=== PATIENT | female | born 1965 | race Caucasian/White ===

== ENCOUNTER 2020-07-04 11:47 | Outpatient (CLI) | payer BC, SELFPAY ==
--- NOTE | ~2020-07-04 | XR_ITS ---
EXAMINATION: XR ribs RT 2V w CXR 2V DATE: 07/04/2020 12:14 INDICATION: Right rib pain. TECHNIQUE: Frontal and lateral views of the chest and 3 views of the right ribs were obtained. COMPARISON: None. FINDINGS: CHEST TWO VIEWS: The chest demonstrates clear lungs without pneumonia, pleural effusion, or pneumotho rax. The heart size is normal. RIGHT RIBS: There is no rib fracture. IMPRESSION: 1. No rib fracture. Reviewed, dictated and finalized at location A. IMPRESSION: 1. No rib fracture.
== END 2020-07-04 11:48 | disposition home or self-care (01) ==
PROVIDERS: PCP Internal Medicine; Visit Provider Internal Medicine
DX: R07.81 Pleurodynia (principal)
CPT/HCPCS: 71046; 71100

== ENCOUNTER 2023-01-31 15:30 | Outpatient (RCR) | payer BC, SELFPAY | END 2023-03-14 08:55 | disposition home or self-care (01) | LOC: ANHDMC 15:30 | PROVIDERS: PCP Internal Medicine; Visit Provider Internal Medicine | DX: E11.9 Type 2 diabetes mellitus without complications (principal); Z71.89 Other specified counseling | CPT/HCPCS: G0108 ==

== ENCOUNTER 2023-06-07 15:25 | Outpatient (RCR) | payer BC, SELFPAY | END 2023-06-10 12:38 | disposition home or self-care (01) | LOC: ANHDMC 15:25 | PROVIDERS: PCP Internal Medicine; Visit Provider Internal Medicine | DX: E11.9 Type 2 diabetes mellitus without complications (principal); Z71.89 Other specified counseling | CPT/HCPCS: G0108 ==

== ENCOUNTER 2025-05-19 12:00 | Emergency (ER) | payer BC, SELFPAY ==
--- NOTE | ~2025-05-19 | XR_ITS ---
EXAMINATION: XR hand RT min 3V, 05/19/2025 12:11 CDT HISTORY: right hand pain COMPARISON: No comparisons available. Findings: No acute fracture or malalignment. No significant degenerative changes. Soft tissues unremarkable. Impression: No acute fracture or malalignment. Reviewed, dictated and finalized at location A. Impression: No acute fracture or malalignment.
--- NOTE | ~2025-05-19 | XR_ITS ---
EXAMINATION: XR forearm RT 2V, 05/19/2025 12:11 CDT HISTORY: swelling and pain. fall COMPARISON: No comparisons available. Findings: No acute fracture or malalignment. No significant degenerative changes. Soft tissues unremarkable. Impression: No acute fracture or malalignment. Reviewed, dictated and finalized at location A. Impression: No acute fracture or malalignment.
[2025-05-19 12:10] VITALS: BP 128/67; PULSE 73; RESP 16; TEMP 35.8; O2SAT 100
--- NOTE | 2025-05-19 12:33 | ED_ITS ---
HPI - General Adult General Chief complaint: Extremity Injury, Upper Stated complaint: FALL/R HAND/ARM/SHOULDER INJURY Source: patient Mode of arrival: ambulatory Limitations: no limitations History of Present Illness HPI narrative: Patient presents for evaluation after experiencing a fall just prior to arrival. She was hiking and tripped, landing with her arms outstretched. She did not hit her head. No loss of consciousness. She is not on blood thinners. She states that she has pain all over. The majority of her pain is located in her right hand, wrist and forearm. She rates her pain 5/10 severity. She has bruising to the dorsal aspect of the right hand. No loss of range of motion but movement makes her symptoms worse. She is right-hand dominant. She has not taken any medication to assist with her symptoms. Related Data Home Medications ?Medication ?Instructions ?Recorded ?Confirmed ?Last Taken ?Type cholecalciferol (vitamin D3) 25 25 mcg PO DAILY Unknown History mcg (1,000 unit) capsule hydrochlorothiazide 25 mg tablet 25 mg PO DAILY Unknown History loratadine 10 mg tablet (Claritin) 10 mg PO DAILY 11/10 11/29 Unknown History losartan 25 mg tablet 25 mg PO 11/23/19 Unknown H istory multivitamin 1 tablet PO DAILY 11/23/19 Unknown History omeprazole magnesium 20 mg 20 mg PO DAILY 11/23/19 Un known History tablet,delayed release tirzepatide 2.5 mg/0.5 mL mg subcut 05/19/25 Unknown History subcutaneous pen injector (Mounjaro) tirzepatide 5 mg/0.5 mL mg subcut 05/19/25 Unknown History subcutaneous pen injector (Mounjaro) Allergies Allergy/AdvReac Type Severity Reaction Status Date / Time latex Allergy Mild Rash Verified 11/23/19 13:07 Review of Systems Review of Systems: CONSTITUTIONAL: Denies fever, chills, or sweats. EYES: Denies visual changes, redness, or discharge. ENT: Denies rhinorrhea, congestion, sore throat, or otalgia. CARDIOVASCULAR: Denies chest pain, palpitations, or edema. RESPIRATORY: Denies cough or dyspnea. GASTROINTESTINAL: Denies abdominal pain, nausea, vomiting, or diarrhea. GENITOURINARY: Denies dysuria or hematuria. SKIN: reports bruising to the right hand. Denies rash or itching. MUSCULOSKELETAL: Reports feeling pain all over with majority of pain in her right hand, wrist, and forearm NEUROLOGIC: Denies headache, numbness, dizziness, or weakness. PSYCHIATRIC: Denies anxiety or depression. [facility] Past Medical History Medical History (Updated 05/19/25 @ 12:47 by Floyd Flores, [employer]PORATE STRATEGY [employer]NALYST, ) delivery delivered Tonsillectomy planned Disease of tonsils and adenoids Allergies Sleep apnea GERD (gastroesophageal reflux disease) Arthritis Asthma Surgical History Surgical History H/O: hysterectomy Family History Family History Mother Family history non-contributory Social History Social History Social History: drinks 3 cups of coffee daily Smoking status: Never smoker Alcohol intake: current Alcohol use details: drinks 2 glasses per month. Substance use: never Living arrangements: with family Gender identity (if verbalized by the patient): Female Spiritual care concerns: No Exam Narrative: GENERAL: Well-appearing, well-nourished, and in no acute distress. HEAD: Normocephalic, atraumatic. EYES: PERRLA and EOMI. ENT: Nares clear, no rhinorrhea or epistaxis. Mucous membranes moist. Oropharynx without tonsillar hypertrophy exudate or other lesions. Bilateral TMs pearly may nonbulging NECK: Supple. No adenopathy or masses. No carotid bruits or JVD CHEST: Clear to auscultation. No respiratory distress. No wheezes rales or rhonchi HEART: Regular rate and rhythm. No murmur heard. Normal peripheral pulses. ABDOMEN: Soft, nontender, nondistended, normal active bowel sounds. EXTREMITIES: there is tenderness over the 4th and 5th metacarpals of the right hand. There is swelling noted to the dorsal aspect of the right hand and the right forearm. Full range of motion of the right wrist but exhibits hesitancy secondary to pain. 4/5 hand coater brake linings strength on the right. 5/5 hand coater brake linings strength on the left SKIN: ecchymosis noted to the dorsal aspect of the right hand NEURO: No focal deficits. Alert and oriented x3. PSYCH: Normal mood and affect. Course Course Emergency Course: This is a 59-year-old female who presented for evaluation an injury to the right upper extremity following a fall. X-rays were negative for fracture. Provided with Peng wrap and sling. Recommend she purchase an [id number] Velcro wrist splint. NSAIDs for pain. She declined analgesics at the time of discharge. She was given Toradol injection while here. She should follow up with primary care go to the ER for worsening symptoms. Patient in agreement with plan of care Level of Care: Express Care Visit Vital Signs Vital signs: Vital Signs Temperature 35.8 C L 05/19/25 12:10 Pulse Rate 73 05/19/25 12:10 Respiratory Rate 16 05/19/25 12:10 Blood Pressure 128/67 05/19/25 12:10 Pulse Oximetry 100 05/19/25 12:10 Temperature 35.8 C L 05/19/25 12:10 Pulse Rate 73 05/19/25 12:10 Respiratory Rate 16 05/19/25 12:10 Blood Pressure 128/67 05/19/25 12:10 Pulse Oximetry 100 05/19/25 12:10 Medical Decision Making Vital Signs Vital Signs: Vital Signs Temperature 35.8 C L 05/19/25 12:10 Pulse Rate 73 05/19/25 12:10 Respiratory Rate 16 05/19/25 12:10 Blood Pressure 128/67 05/19/25 12:10 Pulse Oximetry 100 05/19/25 12:10 Temperature 35.8 C L 05/19/25 12:10 Pulse Rate 73 05/19/25 12:10 Respiratory Rate 16 05/19/25 12:10 Blood Pressure 128/67 05/19/25 12:10 Pulse Oximetry 100 05/19/25 12:10 Imaging Data Radiologist's impression: EXAMINATION: XR hand RT min 3V, 05/19/2025 12:11 CDT HISTORY: right hand pain COMPARISON: No comparisons available. Findings: No acute fracture or malalignment. No significant degenerative changes. Soft tissues unremarkable. Impression: No acute fracture or malalignment. EXAMINATION: XR forearm RT 2V, 05/19/2025 12:11 CDT HISTORY: swelling and pain. fall COMPARISON: No comparisons available. Findings: No acute fracture or malalignment. No significant degenerative changes. Soft tissues unremarkable. Impression: No acute fracture or malalignment. Discharge Plan Discharge Clinical Impression: Contusion of hand, right, Muscle strain of right wrist Patient Disposition: Home Condition: Stable Instructions: Antibiotic Form, Muscle Strain (DC), Contusion in Adults (ED) Additional Instructions: APPLY ICE NEEDED FOR PAIN AND SWELLING A VELCRO WRIST SPLINT MAY HELP REDUCE YOUR PAIN LEVEL USE YOUR SLING NEEDED IBUPROFEN SHOULD HELP WITH PAIN AND SWELLING Patient Language: Greenlandic Prescriptions: No Action Mounjaro 2.5 mg/0.5 mL pen injector SUBCUT Mounjaro 5 mg/0.5 mL pen injector SUBCUT hydrochlorothiazide 25 mg tablet 25 mg PO DAILY losartan 25 mg tablet 25 mg PO multivitamin Tablet 1 tablet PO DAILY omeprazole magnesium 20 mg tablet,delayed release (DR/EC) 20 mg PO DAILY cholecalciferol (vitamin D3) 25 mcg (1,000 unit) capsule 25 mcg PO DAILY loratadine [Claritin] 10 mg tablet 10 mg PO DAILY albuterol sulfate 90 mcg/actuation aero powdr breath act w/sensor 1 inhalation INHALATION Q4-6H PRN (Reason: shortness of breath or wheezing) Qty: 1 0RF Follow-up/Referrals: Naate,MD Ghassan [Primary Care Provider, Unknown] Stand Alone Forms: Work/School Release IP Time of Disposition: 12:43
[2025-05-19] MEDS: KETOROLAC (*BKC) 60 MG/2 ML VIAL IM (12:35)
== END 2025-05-19 12:54 | disposition home or self-care (01) ==
PROVIDERS: Emergency Provider Nurse Practitioner; PCP Internal Medicine
DX: S60.221A Contusion of right hand, initial encounter (principal); S66.911A Strain of unspecified muscle, fascia and tendon at wrist and hand level, right hand, initial encounter; W01.0XXA Fall on same level from slipping, tripping and stumbling without subsequent striking against object, initial encounter; Y93.01 Activity, walking, marching and hiking; K21.9 Gastro-esophageal reflux disease without esophagitis; M19.90 Unspecified osteoarthritis, unspecified site; J45.909 Unspecified asthma, uncomplicated
CPT/HCPCS: 73090; 73130; 96372; 99213; A4565; G0463; J1885